=== PATIENT | male | born 1965 | race Caucasian/White ===

== ENCOUNTER 2023-10-21 17:23 | Emergency (ER) | payer BC ==
[2023-10-21 18:40] LABS: CORONAVIRUS COVID-19 NAA NEGATIVE (NEGATIVE); INFLUENZA A NAA NEGATIVE (NEGATIVE); RESPIRATORY SYNCYTIAL VIR NAA NEGATIVE (NEGATIVE)
[2023-10-21] MEDS ORDERED: Sodium Chloride 0.9% 10 ML Syringe FLUSH PRN ×2 (18:56→20:52)
[2023-10-21 19:46] LABS: BASOPHILS ABSOLUTE AUTO 0.1 K/mm3 (0.0-0.2); BASOPHILS PERCENT AUTO 0.4 % (0.0-1.0); EOSINOPHILS PERCENT AUTO 0.1 % (0.0-6.0); IMMATURE GRAN ABSOLUTE AUTO 0.34 K/mm3 (0.00-0.05); IMMATURE GRAN PERCENT AUTO 2.1 % (0.0-0.4); LYMPHOCYTES ABSOLUTE AUTO 0.3 K/mm3 (1.0-4.8); LYMPHOCYTES PERCENT AUTO 2.1 % (24.0-44.0); MEAN PLATELET VOLUME 9.5 fl (9.4-12.4); MONOCYTES ABSOLUTE AUTO 0.4 K/mm3 (0.0-0.8); MONOCYTES PERCENT AUTO 2.7 % (0.0-8.0); NEUTROPHILS ABSOLUTE AUTO 14.9 K/mm3 (1.8-7.7); NEUTROPHILS PERCENT AUTO 92.6 % (41.0-71.0); PLATELET COUNT,PLT 101 K/mm3 (150-400); WHITE BLOOD CELL COUNT,WBC 16.09 K/mm3 (3.9-11.3)
[2023-10-21 20:20] LABS: A/G RATIO 0.5 (1-2); ALBUMIN 1.9 g/dl (3.4-5.0); ANION GAP 11.5 (5-15); BILIRUBIN TOTAL 0.9 mg/dL (0.2-1.0); BUN/CREATININE RATIO 12.7 (14-18); CREATININE 1.1 mg/dL (0.7-1.3); EST CRCL DRUG DOSING (CG) 75.58 mL/min; MAGNESIUM 1.8 mg/dL (1.8-2.4); POTASSIUM,K 4.5 mEq/L (3.5-5.1); PROTEIN TOTAL,TP 5.6 g/dl (6.4-8.2)
[2023-10-21] MEDS ORDERED: Heparin Sodium 5,000 Units/ML Vial IVPUSH ONE (20:34)
[2023-10-21] MEDS ORDERED: Heparin Sodium/D5W 25,000 UNITS/500 ML BAG IV SCH ×2 (20:45→21:15)
[2023-10-21] MEDS ORDERED: cefTRIAXone 2 GM in Sodium Chloride 0.9% 100 ML IV SCH (20:45)
[2023-10-21] MEDS ORDERED: Iopamidol 755 Mg/ML 100 ML Bottle IVPUSH ONE (20:52)
[2023-10-21] MEDS ORDERED: Sodium Chloride 0.9% 100 ML IV SCH (21:00)
[2023-10-21 21:06] LABS: HEMATOCRIT 35.4 % (42.0-52.0); HEMOGLOBIN 12.6 gm/dl (14.0-18.0)
[2023-10-21 21:07] LABS: MEAN CORPUSCULAR HEMOGLOBIN 31.3 pg (28.0-32.0); MEAN CORPUSCULAR HGB CONC 35.6 g/dl (32.0-36.0); MEAN CORPUSCULAR VOLUME 88.1 fl (83.0-99.0)
[2023-10-21 21:08] LABS: RED BLOOD CELL COUNT 4.02 M/mm3 (4.52-5.90)
[2023-10-21] MEDS: Sodium Chloride 0.9% 1,000 ML IV ONE ×2 (21:33→22:15)
[2023-10-21] MEDS ORDERED: Sodium Chloride 1 GM Tab PO ONE (22:07)
[2023-10-21] MEDS ORDERED: Sodium Chloride 0.9% 1,000 ML IV ONE (22:09)
[2023-10-21 23:05] LABS: SODIUM,URINE RANDOM 3 mEq/L (40-220)
[2023-10-21 23:24] LABS: OSMOLALITY,URINE 281 mosm/kg (400-1100)
[2023-10-22 00:19] LABS: ANION GAP 10.8 (5-15); BUN/CREATININE RATIO 13.6 (14-18); CALCIUM 7.7 mg/dL (8.5-10.1); CREATININE 1.1 mg/dL (0.7-1.3); EST CRCL DRUG DOSING (CG) 75.58 mL/min; POTASSIUM,K 4.8 mEq/L (3.5-5.1)
[2023-10-22] MEDS ORDERED: Sodium Chloride 0.9% 1,000 ML ONE (00:29)
[2023-10-22] MEDS ORDERED: Sodium Chloride 0.9% 1,000 ML IV ONE (00:34)
[2023-10-22] MEDS: Sodium Chloride 1 GM Tab PO SCH ×4 (00:42→03:31)
[2023-10-22 01:11] LABS: BASE EXCESS VENOUS -0.5 (-4.0-2.0); BICARBONATE,VENOUS 25.1 meq/L (22-26); O2 SATURATION VENOUS 17.4; PCO2 VENOUS 47.4 mmHg (41-51); PH,VENOUS 7.34 (7.30-7.40)
[2023-10-22] MEDS ORDERED: Calcium Carbonate 500 MG Tab.Chew PO PRN (01:39)
[2023-10-22 03:22] LABS: ANION GAP 13.4 (5-15); POTASSIUM,K 4.4 mEq/L (3.5-5.1)
== END 2023-10-22 03:48 | disposition home or self-care (01) ==
LOC: JD.ED 17:23
DX: J18.9 Pneumonia, unspecified organism (principal); E22.2 Syndrome of inappropriate secretion of antidiuretic hormone; Z79.899 Other long term (current) drug therapy; Z20.822 Contact with and (suspected) exposure to COVID-19
CPT/HCPCS: 0241U; 36415; 71046; 71275; 80048; 80051; 80053; 82803; 83735; 83930; 83935; 84300; 84484; 85025; 85379; 85730; 93005; 96365; 96368; 99285; A9270; J0696; J1644; J3490; J7030; J7131; Q9967; 93010; 99284